=== PATIENT | male | born 1970 | race African-American/Black ===

== ENCOUNTER 2022-03-24 12:26 | Outpatient (CLI) | payer OTHER | END 2022-03-24 12:27 | disposition home or self-care (01) | LOC: CSHRAD 12:26 | PROVIDERS: ATTEND Family Medicine | DX: K25.7 Chronic gastric ulcer without hemorrhage or perforation (principal); R14.0 Abdominal distension (gaseous); R06.09 Other forms of dyspnea | CPT/HCPCS: 71046; 74019 ==

== ENCOUNTER 2023-01-03 07:51 | Outpatient (CLI) | payer OTHER ==
[2023-01-03] MEDS ORDERED: Iopamidol 300 61% 100 ML VIAL FS ONE (10:04)
== END 2023-01-03 07:52 | disposition home or self-care (01) ==
LOC: CSHCT 07:51
PROVIDERS: ATTEND Urology
DX: C61 Malignant neoplasm of prostate (principal); R10.10 Upper abdominal pain, unspecified
CPT/HCPCS: 74177

== ENCOUNTER 2023-02-08 04:31 | Emergency (ER) | payer OTHER ==
[2023-02-08] MEDS ORDERED: Ketorolac Tromethamine 30 MG/ML VIAL ONE (05:03)
[2023-02-08] MEDS ORDERED: Ondansetron PF 4 MG/2 ML Vial ONE (05:03)
[2023-02-08 05:43] LABS: #Eosinphils 0.2 10x3/uL (0.0-0.5); #Monocytes 0.3 10x3/uL (0.0-1.1); #Neutrophils 2.9 10x3/uL (1.5-8.4); %Basophils 0.2 % (0.0-2.0); %Eosinophils 3.4 % (0.0-6.0); %Lymphocytes 22.3 % (18.0-47.0); %Monocytes 7.5 % (0.0-10.0); %Neutrophils 66.4 % (40.0-75.0); Hematocrit 42.8 % (38.8-50.0); Hemoglobin 14.5 g/dL (13.5-17.5); Mean Corpuscular HGB CONC 33.9 g/dL (32.0-36.0); Mean Corpuscular Hemoglobin 31.7 pg (27.0-33.0); Mean Corpuscular Volume 93.7 fl (81.2-95.1); Mean Platelet Volume 9.6 fl (7.4-10.4); Platelet Count 294 10x3/uL (150-450); RBC Distribution Width 13.9 % (11.5-14.5); Red Blood Cell (RBC) Count 4.57 10x6/uL (4.32-5.72); White Blood Cell (WBC) Count 4.4 10x3/uL (3.5-10.5)
[2023-02-08 05:48] LABS: Troponin I Less than 0.010 ng/mL (< 0.028)
[2023-02-08 05:49] LABS: ALT (SGPT) 13 U/L (8-55); AST (SGOT) 13 U/L (5-34); Albumin 4.1 g/dL (3.5-5.0); Alkaline Phosphatase 65 U/L (40-110); Anion Gap 14 mmol/L (10-20); BUN (Urea Nitrogen) 19 mg/dL (8.4-25.7); Bilirubin, Total 0.5 mg/dL (0.2-1.2); CK (CPK) 90 U/L (30-200); Calc. Creatinine Clearance 0 mL/min (70-130); Calcium 8.9 mg/dL (7.8-10.44); Carbon Dioxide 22 mmol/L (22-29); Chloride 106 mmol/L (98-107); Estimated GFR 103; Globulin 2.3 g/dL (2.4-3.5); Glucose 115 mg/dL (70-105); Lipase 18 U/L (8-78); Potassium 4.2 mmol/L (3.5-5.1); Protein, Total 6.4 g/dL (6.0-8.3); Sodium 138 mmol/L (136-145)
[2023-02-08 06:05] LABS: SARS-CoV-2 NAA Rapid Test Not Detected (NotDetected)
[2023-02-08 06:25] LABS: Bilirubin Neg (Negative); Blood, Urine Negative (Negative); Clarity Clear (Clear); Glucose, Urine (Dipstick) Normal (Negative); Ketone, Urine Negative (Negative); Leukocyte Negative (Negative); Nitrite Negative (Negative); Protein, Urine (Dipstick) Negative (Neg-Trace); Urobilinogen Normal mg/dL (Less than 2)
[2023-02-08 06:31] LABS: Bacteria/HPF None Seen HPF (None Seen); CAUTI Indications for Culture Pelvic or flank pain; RBC/HPF None Seen HPF (0-3); Squamous Epithelial 0-3 HPF (0-3); Urine Culture Reflex No No; WBC/HPF None Seen HPF (0-3)
[2023-02-08] MEDS ORDERED: Iopamidol 300 61% 100 ML VIAL FS ONE (08:35)
== END 2023-02-08 06:40 | disposition home or self-care (01) ==
LOC: CSHERS 04:31
DX: R10.13 Epigastric pain (principal); I10 Essential (primary) hypertension; E78.00 Pure hypercholesterolemia, unspecified; K21.9 Gastro-esophageal reflux disease without esophagitis; Z87.891 Personal history of nicotine dependence; Z20.822 Contact with and (suspected) exposure to COVID-19; Z79.899 Other long term (current) drug therapy
CPT/HCPCS: 71045; 74177; 80053; 81001; 82550; 83690; 83735; 83880; 84484; 85025; 93005; 96361; 96374; 96375; J1885; J2405; Q9967

== ENCOUNTER 2024-02-21 07:17 | Outpatient (CLI) | payer OTHER | END 2024-02-21 07:18 | disposition home or self-care (01) | LOC: CSHCP 07:17 | PROVIDERS: ATTEND Internal Medicine Critical Care Medicine | DX: J44.9 Chronic obstructive pulmonary disease, unspecified (principal); R94.2 Abnormal results of pulmonary function studies | CPT/HCPCS: 94060; 94664; 94726; 94729; 94760 ==